=== PATIENT | male | born 1955 | race Caucasian/White ===

== ENCOUNTER 2024-12-30 07:09 | Day surgery (SDC) | payer MEDICARE, BC ==
[2024-12-30] VITALS (11 sets, daily range): BP systolic 122–145; BP diastolic 69–92; PULSE 63–72; RESP 11–17; TEMP 97.8; O2SAT 95–100
[~2024-12-30] VITALS: Ht 182.9 cm; Wt 93.9 kg
[2024-12-30] MEDS: DOCUMENT DATE & TIME OF BETA-BLOCKER PO ONE (05:30)
[~2024-12-30 07:09] MED LIST: AMLO-382 PO; APIX5TAB3 PO; BUPIVAcaine/PF 2.5mg/ml (0.25%) 10ml vial ONE; CHLO25TA10 PO; CHOL100025 PO; CYAN-34 PO; CYCL-1 PO; DUTA0.5C40 PO; ESOM40CA66 PO; EVOL140P3 SQ; LIDOcaine 2% (20mg/ml) 5ml vial ONE; MESA800T9 PO; METO-411 PO; ROSU40TA89 PO; TEST200V33 IM; TIRZ15PE3 SQ; ceFAZolin 2gm/dext,iso 50mL 50 ML IV ONE
[2024-12-30] MEDS ORDERED: morphine 4 MG/ML inj SYRINge IV PRN (07:45)
[2024-12-30] MEDS ORDERED: ondansetron/PF 4mg/2ml inj IV PRN (07:45)
[2024-12-30] MEDS ORDERED: ringers solution, lacted 1,000 ML IV SCH (07:45)
[2024-12-30] MEDS ORDERED: labetalol 20mg/4ml (5mg/ml) syringe IV PRN (07:45)
[2024-12-30] MEDS ORDERED: morphine 2 MG/ML inj. syringe IV PRN (07:45)
[2024-12-30] MEDS: ringers solution, lacted 1,000 ML IV SCH (07:58)
[2024-12-30] MEDS: famotidine 20mg tablet PO ONE (07:58)
[2024-12-30] MEDS ORDERED: triamcinolone acetonide 40mg/ml inj ONE (08:20)
[2024-12-30] MEDS ORDERED: propofol inj 20 ML IV ONE (10:15)
--- NOTE | 2024-12-30 14:56 | OPERATIVE REPORT ---
Operative Report Providers to ~ Date of Procedure: Dec 30, 2024 Pre-Operative Diagnosis: Left wrist carpal tunnel syndrome Post-Operative Diagnosis SAME as PRE-Op Procedure Performed Left wrist open carpal tunnel release Surgeon: Win Smith MD Handle Lathe Operator None Anesthesiologist: Warner Dia Type of Anesthesia: Other Findings: Estimated Blood Loss: None Specimen Removed: None Description of Procedure: INDICATIONS: This patient is a 69 year old with left sided carpal tunnel syndrome refractory to conservative treatment. Surgery is indicated for relief of symptoms. Procedure- The risks, benefits, expected results, and possible complications of the planned procedure had been explained to the patient and informed consent obtained. PROCEDURE- The arm was prepped and draped in the usual manner. Local anesthetic was injected proximal to the volar wrist area. The tourniquet on the forearm was inflated. An incision was made in the palm ulnar to the thenar crease in line with the ring finger. Blunt dissection was performed through deeper tissues until the transverse carpal ligament was encountered. The carpal tunnel was entered with an incision in line with the skin incision. The nerve was protected and the ligament was released distally and proximally. The forearm fascia proximal to the incision was released using bunt Metzenbaum scissors. The nerve was decompressed at this point. The wound was irrigated and the small bleeders were cauterized. The wound was then closed with 5-O nylon sutures. The tourniquet was released and the hand perfused well.A sterile dressing was applied. The patient was then taken to the recovery room in stable condition. The patient tolerated the procedure well. WIN SMITH Jr., MD Dec 30, 2024 14:56
== END 2024-12-30 12:02 | disposition home or self-care (01) ==
LOC: PAS 07:09
PROVIDERS: ATTEND Orthopaedic Surgery Hand Surgery
DX: G56.02 Carpal tunnel syndrome, left upper limb (principal); M18.12 Unilateral primary osteoarthritis of first carpometacarpal joint, left hand; I25.2 Old myocardial infarction; I10 Essential (primary) hypertension; M17.12 Unilateral primary osteoarthritis, left knee; E11.9 Type 2 diabetes mellitus without complications; Z95.1 Presence of aortocoronary bypass graft; Z88.2 Allergy status to sulfonamides; Z91.09 Other allergy status, other than to drugs and biological substances; Z91.041 Radiographic dye allergy status; K21.9 Gastro-esophageal reflux disease without esophagitis; Z72.89 Other problems related to lifestyle; Z79.899 Other long term (current) drug therapy; Z98.890 Other specified postprocedural states
CPT/HCPCS: 64721; 82948; A4215; A6449; J2003; J2704; J3301; J3490; J7030; J7120; Z7506; Z7512; Z7610